=== PATIENT | female | born 1960 | race Caucasian/White ===

== ENCOUNTER 2019-02-10 04:44 | Emergency (ER) | payer OTHER ==
--- NOTE | 2019-02-10 05:16 | ERPHSYRPT ---
- History of Present Illness Time Seen by Provider: 02/10/19 05:05 Source: patient, EMS Patient Subjective Stated Complaint: Hypertension Triage Nursing Assessment: Patient brought into ED via EMS and transferred to bed with assist of 2. Patient states she woke up sweating and felt hot. Patient states she had braulio leg cramps and got real cold. Patient denies pain or discomfort. Lungs clear a/p braulio. Heart tones audible. Patient's skin pink, cold and dry. Patient states she is attending [employer] with others and they were concerned and called EMS. Patient states she just wants to go back to sleep. EMS states blood sugar was 85 prior to arrival Physician History: 59 y/o morbidly obese white female with h/o htn, presents via ems where pt was at a [employer], felt hot and had bilat leg cramps. pt brought to ED. pt denies cp, denies abd pain, denies soa and denies cough. pt states she felt fine yesterday morning. she did not take her lisinopril medication. pt denies n/ v/d. Timing/Duration: today Severity: mild Associated Symptoms: diaphoresis, other (leg cramps), No nausea, No vomiting, No abdominal pain Allergies/Adverse Reactions: metformin Allergy (Verified 02/10/19 04:54) Hx Influenza Vaccination/Date Given: No Hx Pneumococcal Vaccination/Date Given: No Immunizations Up to Date: Yes - Review of Systems Constitutional: No Symptoms Eyes: No Symptoms Ears, Nose, & Throat: No Symptoms Respiratory: No Symptoms Cardiac: No Symptoms Abdominal/Gastrointestinal: No Symptoms Genitourinary Symptoms: No Symptoms Musculoskeletal: Other (bilat leg cramping) Skin: No Symptoms Neurological: No Symptoms Psychological: No Symptoms Endocrine: No Symptoms Hematologic/Lymphatic: No Symptoms Immunological/Allergic: No Symptoms All Other Systems: Reviewed and Negative - Past Medical History Pertinent Past Medical History: Yes Neurological History: No Pertinent History ENT History: No Pertinent History Cardiac History: Hypertension Respiratory History: No Pertinent History Endocrine Medical History: Diabetes Type II, Hypothyroidism Musculoskeletal History: No Pertinent History GI Medical History: No Pertinent History History: No Pertinent History Psycho-Social History: No Pertinent History Female Reproductive Disorders: No Pertinent History - Past Surgical History Past Surgical History: Yes Neuro Surgical History: No Pertinent History Cardiac: No Pertinent History Respiratory: No Pertinent History Gastrointestinal: No Pertinent History Genitourinary: No Pertinent History Musculoskeletal: No Pertinent History Female Surgical History: Hysterectomy - Social History Smoking Status: Never smoker Exposure to second hand smoke: Yes Drug Use: none Patient Lives Alone: No - Female History Hx Last Menstrual Period: Hysterectomy Hx Now: No - Nursing Vital Signs Nursing Vital Signs: Initial Vital Signs Temperature 95.6 F 02/10/19 04:56 Pulse Rate 72 02/10/19 04:56 Respiratory Rate 18 02/10/19 04:56 Blood Pressure 185/95 02/10/19 04:56 O2 Sat by Pulse Oximetry 98 02/10/19 04:56 Pain Scale Pain Intensity 0 - Physical Exam General Appearance: alert, anxiety, obese, other (pt was asleep and comfortable when i entered room i woke her up she c/o bilat leg cramps) Eye Exam: PERRL/EOMI, eyes nml inspection Ears, Nose, Throat Exam: normal ENT inspection, dry mucous membranes Neck Exam: normal inspection, non-tender, supple, full range of motion Respiratory Exam: normal breath sounds, lungs clear, airway intact, No chest tenderness, No respiratory distress Cardiovascular Exam: regular rate/rhythm, normal heart sounds, normal peripheral pulses Gastrointestinal/Abdomen Exam: soft, normal bowel sounds, No tenderness, No guarding Pelvic Exam: not done Rectal Exam: not done Back Exam: normal inspection, normal range of motion, No CVA tenderness, No vertebral tenderness Extremity Exam: normal inspection, normal range of motion, pelvis stable Neurologic Exam: alert, oriented x 3, cooperative, 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 ) Ordered Tests: Active Orders 24 hr Category Date Time Status Access Service Representative STAT Care 02/10/19 05:17 Active IV Insertion STAT Care 02/10/19 05:16 Active Pulse Oximetry (ED) STAT Care 02/10/19 05:16 Active Rectal Temperature STAT Care 02/10/19 05:16 Active CBC W DIFF Stat Lab 02/10/19 05:50 Completed CMP Stat Lab 02/10/19 05:50 Completed CULTURE,URINE Stat Lab 02/10/19 05:45 Received D-DIMER QUANTITATION Stat Lab 02/10/19 05:57 Completed Lactic Acid Stat Lab 02/10/19 05:45 Completed UA W/RFX UR CULTURE Stat Lab 02/10/19 05:45 Completed Medication Summary Generic Name Dose Route Start Last Admin Trade Name Rina PRN Reason Stop Dose Admin Sodium Chloride 1,000 mls @ 100 mls/hr 02/10/19 05:30 02/10/19 05:30 Sodium Chloride 0.9% 1000 Ml IV 03/12/19 05:29 100 mls/hr .Q10H DARIO Administration Discontinued Medications Generic Name Dose Route Start Last Admin Trade Name Freq PRN Reason Stop Dose Admin Enalaprilat 1.25 mg 02/10/19 05:36 02/10/19 05:59 Vasotec I.V. 2.5 Mg IV 02/10/19 05:37 0.625 mg STAT ONE Administration Enalaprilat Confirm 02/10/19 05:55 Vasotec I.V. 2.5 Mg Administered 02/10/19 05:56 Dose 2.5 mg IV .STK-MED ONE Lorazepam Confirm 02/10/19 05:55 Ativan 2 Mg/1 Ml Vial Administered 02/10/19 05:56 Dose 2 mg .ROUTE .STK-MED ONE Lorazepam 0.5 mg 02/10/19 05:56 02/10/19 06:00 Ativan 2 Mg/1 Ml Vial IV 02/10/19 05:57 0.5 mg STAT ONE Administration Lab/Rad Data: Laboratory Result Diagrams 02/10/19 05:50 02/10/19 05:50 Laboratory Results 02/10/19 02/10/19 02/10/19 Range/Units 05:57 05:50 05:50 WBC 9.0 (4.0-10.5) K/mm3 RBC 3.97 L (4.1-5.4) M/mm3 Hgb 10.7 L (12.0-16.0) gm/dl Hct 33.7 L (35-47) % MCV 84.9 (78-100) fl MCH 26.9 (26-32) pg MCHC 31.8 L (32-36) g/dl RDW 15.5 H (11.5-14.0) % Plt Count 220 (150-450) K/mm3 MPV 10.1 H (6-9.5) fl Gran % 79.1 H (36.0-66.0) % Eos # (Auto) 0.09 (0-0.5) Absolute Lymphs (auto) 1.38 (1.0-4.6) Absolute Monos (auto) 0.40 (0.0-1.3) Lymphocytes % 15.3 L (24.0-44.0) % Monocytes % 4.4 (0.0-12.0) % Eosinophils % 1.0 (0.00-5.0) % Basophils % 0.2 (0.0-0.4) % Absolute Granulocytes 7.13 H (1.4-6.9) Basophils # 0.02 (0-0.4) D-Dimer 314 (215-500) ng/mL Sodium 139 (137-145) mmol/L Potassium 4.2 (3.5-5.1) mmol/L Chloride 103 (98-107) mmol/L Carbon Dioxide 23 (22-30) mmol/L Anion Gap 17.5 H (5-15) MEQ/L BUN 30 H (7-17) mg/dL Creatinine 1.25 H (0.52-1.04) mg/dL Estimated GFR 46.5 ML/MIN Glucose 126 H (74-106) mg/dL Lactic Acid (0.4-2.0) Calcium 9.7 (8.4-10.2) mg/dL Total Bilirubin 2.40 H (0.2-1.3) mg/dL AST 32 (14-36) U/L ALT 31 (0-35) U/L Alkaline Phosphatase 70 (38-126) U/L Serum Total Protein 8.1 (6.3-8.2) g/dL Albumin 4.3 (3.5-5.0) g/dL Urine Color (YELLOW) Urine Appearance (CLEAR) Urine pH (5-6) Ur Specific Estill (1.005-1.025) Urine Protein (Negative) Urine Ketones (NEGATIVE) Urine Blood (0-5) Milind/ul Urine Nitrite (NEGATIVE) Urine Bilirubin (NEGATIVE) Urine Urobilinogen (0-1) mg/dL Ur Leukocyte Esterase (NEGATIVE) Urine WBC (Auto) (0-5) /HPF Urine RBC (Auto) (0-2) /HPF U Epithel Cells (Auto) (FEW) /HPF Urine Bacteria (Auto) (NEGATIVE) /HPF Urine Mucus (Auto) (NEGATIVE) /HPF Urine Culture Reflexed (NO) Urine Glucose (NEGATIVE) mg/dL 02/10/19 02/10/19 Range/Units 05:45 05:45 WBC (4.0-10.5) K/mm3 RBC (4.1-5.4) M/mm3 Hgb (12.0-16.0) gm/dl Hct (35-47) % MCV (78-100) fl MCH (26-32) pg MCHC (32-36) g/dl RDW (11.5-14.0) % Plt Count (150-450) K/mm3 MPV (6-9.5) fl Gran % (36.0-66.0) % Eos # (Auto) (0-0.5) Absolute Lymphs (auto) (1.0-4.6) Absolute Monos (auto) (0.0-1.3) Lymphocytes % (24.0-44.0) % Monocytes % (0.0-12.0) % Eosinophils % (0.00-5.0) % Basophils % (0.0-0.4) % Absolute Granulocytes (1.4-6.9) Basophils # (0-0.4) D-Dimer (215-500) ng/mL Sodium (137-145) mmol/L Potassium (3.5-5.1) mmol/L Chloride (98-107) mmol/L Carbon Dioxide (22-30) mmol/L Anion Gap (5-15) MEQ/L BUN (7-17) mg/dL Creatinine (0.52-1.04) mg/dL Estimated GFR ML/MIN Glucose (74-106) mg/dL Lactic Acid 1.2 (0.4-2.0) Calcium (8.4-10.2) mg/dL Total Bilirubin (0.2-1.3) mg/dL AST (14-36) U/L ALT (0-35) U/L Alkaline Phosphatase (38-126) U/L Serum Total Protein (6.3-8.2) g/dL Albumin (3.5-5.0) g/dL Urine Color MARCUS (YELLOW) Urine Appearance CLOUDY (CLEAR) Urine pH 6.0 (5-6) Ur Specific Estill 1.010 (1.005-1.025) Urine Protein >=500 (Negative) Urine Ketones NEGATIVE (NEGATIVE) Urine Blood MODERATE (0-5) Milind/ul Urine Nitrite POSITIVE (NEGATIVE) Urine Bilirubin NEGATIVE (NEGATIVE) Urine Urobilinogen NEGATIVE (0-1) mg/dL Ur Leukocyte Esterase MODERATE (NEGATIVE) Urine WBC (Auto) >100 (0-5) /HPF Urine RBC (Auto) 51-100 (0-2) /HPF U Epithel Cells (Auto) NONE (FEW) /HPF Urine Bacteria (Auto) MODERATE (NEGATIVE) /HPF Urine Mucus (Auto) SLIGHT (NEGATIVE) /HPF Urine Culture Reflexed YES (NO) Urine Glucose NEGATIVE (NEGATIVE) mg/dL - Progress Progress: improved, re-examined Counseled pt/family regarding: lab results, diagnosis, need for follow-up - Departure Departure Disposition: Home Clinical Impression: UTI (urinary tract infection) Condition: Stable Critical Care Time: No Referrals: DOCTOR,NO FAMILY [Primary Care Provider] - Additional Instructions: drink plenty of fluids. take your medications as prescribed. follow up with primary doctor for further management Prescriptions: Ciprofloxacin [Cipro 500 MG] 500 mg PO BID #20 tablet
[2019-02-10] MEDS ORDERED: Sodium Chloride 0.9% 1000 ML 1,000 ML ONE (05:23)
[2019-02-10] MEDS ORDERED: Sodium Chloride 0.9% 1000 ML 1,000 ML IV SCH (05:30)
[2019-02-10] MEDS ORDERED: VASOTEC I.V. 2.5 MG IV ONE ×2 (05:36→05:55)
[2019-02-10] MEDS ORDERED: Ativan 2 MG/1 ML VIAL ONE (05:55)
[2019-02-10] MEDS ORDERED: Ativan 2 MG/1 ML VIAL IV ONE (05:56)
[2019-02-10 05:59] LABS: BASOPHIL % 0.2 % (0.0-0.4); Basophil (Absolute #) 0.02 (0-0.4); Eosinophil (Absolute #) 0.09 (0-0.5); Granulocyte Absolute (ANC) 7.13 (1.4-6.9); Granulocytes % 79.1 % (36.0-66.0); Hematocrit 33.7 % (35-47); Hemoglobin 10.7 gm/dl (12.0-16.0); Lymphocyte (Absolute #) 1.38 (1.0-4.6); Lymphocytes % 15.3 % (24.0-44.0); Mean Cell Volume 84.9 fl (78-100); Mean Corpuscular Hgb Concent. 31.8 g/dl (32-36); Mean Platelet Volume 10.1 fl (6-9.5); Monocytes % 4.4 % (0.0-12.0); Platelet Count 220 K/mm3 (150-450); Red Blood Count 3.97 M/mm3 (4.1-5.4); Red Cell Distribution Width 15.5 % (11.5-14.0)
[2019-02-10 06:10] LABS: Appearance CLOUDY (CLEAR); Bacteria MODERATE /HPF (NEGATIVE); Bilirubin NEGATIVE (NEGATIVE); Blood MODERATE Ery/ul (0-5); Glucose NEGATIVE (NEGATIVE); Ketones NEGATIVE (NEGATIVE); Leukocyte Esterase MODERATE (NEGATIVE); Mucus SLIGHT /HPF (NEGATIVE); Nitrite POSITIVE (NEGATIVE); Protein,Urine Dip >=500 (Negative); RBC 51-100 /HPF (0-2); Urobilinogen NEGATIVE mg/dL (0-1); WBC >100 /HPF (0-5)
[2019-02-10 06:15] LABS: ALBUMIN 4.3 g/dL (3.5-5.0); ANION GAP 17.5 MEQ/L (5-15); BILIRUBIN,TOTAL 2.4 mg/dL (0.2-1.3); Calcium 9.7 mg/dL (8.4-10.2); Creatinine 1 1.25 mg/dL (0.52-1.04); Potassium 4.2 mmol/L (3.5-5.1); Total Protein 8.1 g/dL (6.3-8.2)
[2019-02-10 06:17] LABS: Mean Corpuscular Hemoglobin 26.9 pg (26-32)
[2019-02-10] MEDS ORDERED: ROCEPHIN 1 Gm-D5w 50 ml Bag** 1 G/50 ML IVPB IV STA (06:28)
[2019-02-10] MEDS ORDERED: Cipro 500 MG PO ONE (06:28)
[2019-02-10] MEDS ORDERED: ROCEPHIN 1 Gm-D5w 50 ml Bag** 1 G/50 ML IVPB IV ONE (06:38)
[2019-02-10] MEDS ORDERED: Cipro 500 MG ONE (06:38)
[2019-02-10 07:03] VITALS: BP 177/99; PULSE 69; O2SAT 94
== END 2019-02-10 07:18 | disposition home or self-care (01) ==
LOC: ED 04:44
DX: N39.0 Urinary tract infection, site not specified (principal)
CPT/HCPCS: 36415; 80053; 81001; 83605; 85025; 85379; 87077; 87086; 87186; 93041; 96360; 96365; 96374; 96375; 99284; J0696; J2060; A9270-GY